=== PATIENT | male | born 1970 | race Caucasian/White ===

== ENCOUNTER 2017-11-15 15:11 | Emergency (ER) | payer MEDICAID, OTHER ==
[2017-11-15] MEDS ORDERED: NS 1,000 ML IV ONE (15:30)
--- NOTE | 2017-11-15 16:09 | EDPHY ---
General - History Smoking Status: Current every day smoker Time Seen by Provider: 11/15/17 15:45 Narrative: CHIEF COMPLAINT: Chest pain, shoulder pain HISTORY OF PRESENT ILLNESS: Patient presents in custody of [facility]'s [facility] with complaints of chest pain right shoulder pain. He states that this started approximately 30 min ago when he was in court. It is a central chest pain right-sided shoulder pain. He feels that he may have injured it recently and that the pain was related to the injury. Associated with some shortness of breath and feeling anxious. At this time the pain has resolved except in the right shoulder. No numbness or tingling. No weakness. No previous coronary artery disease or AR. No family members with coronary disease. No recent travel, trauma or surgery. No history of venous thrombolic event REVIEW OF SYSTEMS: 10 systems were reviewed and negative with the exception of the elements mentioned in the history of present illness. PCP: None SPECIALISTS: None PAST MEDICAL HISTORY: Denies PAST SURGICAL HISTORY: None SOCIAL HISTORY: Occasional tobacco use. FAMILY HISTORY: Noncontributory EXAMINATION General Appearance: Alert, no distress. Anxious and fidgeting Head: normocephalic, atraumatic Eyes: Pupils equal and round, no conjunctival pallor or injection ENT, Mouth: Mucous membranes moist Neck: Normal inspection, supple, non-tender Respiratory: Lungs are clear to auscultation. No wheeze rhonchi or crackles Cardiovascular: Regular rate and rhythm. No murmur. There is tenderness to palpation of the superior, anterior portion of the chest. Gastrointestinal: Abdomen is soft and nontender Back: non-tender, no bony abnormalities Neurological: A&O, nonfoca. Strength is symmetric in all 4 limbs. Skin: Warm and dry, no rash. Multiple tattoos. Extremities: Mild tenderness of the right shoulder. Range of motion upper extremities symmetric without any signs of compartment syndrome or DVT. Psychiatric: Anxious and fidgeting DIFFERENTIAL DIAGNOSES: Including but not limited to shoulder sprain, fracture, dislocation, subluxation , ACS, PE, pneumonia MDM: 3:30 p.m. Right-sided chest pain right shoulder pain with recent injury. He has no chest pain at this time. He has minimal shoulder pain at this time. He is awake alert no acute distress but vital signs are stable. Afebrile. No SIRS criteria. We have ordered cardiac laboratory studies well as chest x-ray, although I do feel this is a mechanical/musculoskeletal pain. EKG has been reviewed is unremarkable. 4:10 p.m. Troponin is negative. X-rays of the shoulder and chest are unremarkable. He has no pain at this time. I do not feel that cardiac etiologies are likely although I have considered these. I do not feel that pulmonary etiologies are likely, although I have considered these. He does have recent injury with mostly reproducible pain in the right shoulder and upper chest. We discussed follow up primary care physician, ED precautions for any exertional or radiating pain. I do feel he is stable for discharge home discharge to the custody of [facility]'s Office. EKG interpretation:Dr. Murrell SUPERVISION: Patient was independently examined, but I discussed the case with my secondary supervising physician Dr. murrell ([facility]) Medical Decision Making: I did not see this patient while he was in the emergency department. However his care was discussed with the PA while the patient was in the department. I agree with treatment plan and management (Get Murrell) - Diagnostics Imaging Results: Imaging Impressions Chest X-Ray 11/15/17 15:33 Impression: Negative frontal chest radiograph. Shoulder X-Ray 11/15/17 15:33 Impression: Nothing acute identified. - Objective Vital Signs: Initial Vital Signs Temperature (C) 36.4 C 11/15/17 15:11 Heart Rate 92 11/15/17 15:11 Respiratory Rate 14 11/15/17 15:11 Blood Pressure 108/80 11/15/17 15:11 O2 Sat (%) 94 11/15/17 15:11 O2 Delivery Mode Room Air Allergies/Adverse Reactions: No Known Allergies Allergy (Verified 11/15/17 15:18) Laboratory Results: 11/15/17 15:21 POC Troponin I 0.00 ng/mL ng/mL (0.00-0.08) Medications Given: Discontinued Medications Sodium Chloride (Ns) 1,000 mls @ 0 mls/hr IV EDNOW ONE; Wide Open PRN Reason: Protocol Stop: 11/15/17 15:31 Last Admin: 11/15/17 15:49 Dose: 1,000 mls Point of Care Test Results: Chemistry 11/15/17 15:21 POC Troponin I 0.00 ng/mL ng/mL (0.00-0.08) Departure - Departure Disposition: Home, Routine, Self-Care Clinical Impression: Chest wall pain Shoulder pain, acute Qualifiers: Laterality: right Qualified Code(s): M25.511 - Pain in right shoulder Condition: Good Instructions: Shoulder Pain (ED), Chest Wall Pain (ED) Additional Instructions: 1. Follow up primary care physician orthopedist for ongoing care 2. Per return to emergency department for any exertional chest pain, shortness of breath, nausea, vomiting or diaphoresis 3. Ibuprofen 600 mg every 6-8 hours as needed if your pain returns Referrals: Deepika Cantor MD [[facility] Primary Care Provider] - As per Instructions [facility],. [Clinic] - As per Instructions
[2017-11-15 16:35] VITALS: BP 111/91
--- NOTE | 2017-11-15 20:57 | CPEKG ---
Test Reason : OPEN Blood Pressure : / mmHG Vent. Rate : 106 BPM Atrial Rate : 106 BPM P-R Int : 165 ms QRS Dur : 095 ms QT Int : 341 ms P-R-T Axes : 069 155 065 degrees QTc Int : 453 ms Sinus tachycardia Probable inferior infarct, old Confirmed by Get Fernandez ([id number]) on 11/15/2017 8:57:07 PM Referred By: Confirmed By:Get Fernandez
== END 2017-11-15 16:32 | disposition home or self-care (01) ==
LOC: EDUNIT#
DX: R07.89 Other chest pain (principal); M25.511 Pain in right shoulder; F17.200 Nicotine dependence, unspecified, uncomplicated
CPT/HCPCS: 84484-PO